=== PATIENT | male | born 1985 | race Caucasian/White ===

== ENCOUNTER 2020-08-04 22:09 | Emergency (ER) | payer OTHER ==
[~2020-08-04] VITALS: Ht 177.8 cm; Wt 75.0 kg
[~2020-08-04 22:09] MED LIST: ATOR20TA37 PO; LEVE500T53 PO; MIRT30TA97 PO
--- NOTE | 2020-08-04 22:13 | NUR ---
PT BROUGHT IN BY [employer] FOR HEAD LAC, PER [employer] PT WAS IN BACK OF [employer] CAR AND HIT HIS OWN HEAD AGAINST THE METAL BARS. APPROX 1.5 IN LAC NOTED ABOVE RIGHT EYEBROW AND SMALL LAC NOTED ON HAIRLINE IN MIDDLE OF FOREHEAD. SMALL BLOODY DRAINAGE NOTED. PT IN CUSTODY AND HANDCUFFS CUSSING AND SCREAMING AND SPITTING. PT REFUSING TREATMENT. MD VELAZQUEZ
--- NOTE | 2020-08-04 22:15 | NUR ---
PT ALSO REFUSING VITALS TAKEN.
== END 2020-08-04 22:34 | disposition home or self-care (01) ==
LOC: ED 22:15
DX: S01.81XA Laceration without foreign body of other part of head, initial encounter (principal); S09.90XA Unspecified injury of head, initial encounter; F10.129 Alcohol abuse with intoxication, unspecified; Z72.9 Problem related to lifestyle, unspecified; G40.909 Epilepsy, unspecified, not intractable, without status epilepticus; Y90.0 Blood alcohol level of less than 20 mg/100 ml; X58.XXXA Exposure to other specified factors, initial encounter; Y93.89 Activity, other specified; Y92.89 Other specified places as the place of occurrence of the external cause; Y99.8 Other external cause status
CPT/HCPCS: 99283